=== PATIENT | female | born 1970 | race American Indian/Alaskan Native ===

== ENCOUNTER → 2016-11-09 | Outpatient (CLI) | payer OTHER ==
[~2016-11-09] MED LIST: ALBUTEROL17 GM INH; AMITRIPTYLINE H25 MG; ANTIVERT PO; BUSPAR15 M3; CLOPIDOGREL75 MG PO; DEXALANT; DEXILANT60 MG PO; DIAZEPAM; DICLOFENAC; DIPHENHYDRAMINE IV; DYRENIUM50 MG; K-DUR20 ME1; KLONOPIN; LAMICTAL100 MG PO; LIDODERM30 EA; LYRICA; MAGIC MOUTHWASH; NASONEX17 GM; PERCOCET; PERCOCET10 PO; PHENERGAN25 MG IV; POTASSIUM IV; PROTONIX IVP; ROPINIROLE HCL4 MG PO; SINGULAIR4 MG; SYMBYAX; SYNTHROID; TORADOL10 MG; TRANSDERM-1 PATCH .7 TOP; VITAMIN B122500 MC1; VITAMIN D50000 UNIT PO; XYZAL5 MG PO; ZOCOR; ZOFRAN IV; [UNRECOGNIZED DRUG - OTHER]; [UNRECOGNIZED DRUG - OTHER]; [UNRECOGNIZED DRUG - OTHER] IV
--- NOTE | ~2016-11-09 | EKG ---
PATIENT: HOLLI BURROUGHS UNIT #: [id number] Ventricular Rate: 87 BPM Atrial Rate: 87 BPM P-R Interval: 150 ms QRS Duration: 86 ms Q-T Interval: 364 ms QTC Calculation(Bezet): 438 ms P [place]: 36 degrees Calculated R [place]: 17 degrees Calculated T [place]: 35 degrees Diagnosis Line: Normal sinus rhythm Diagnosis Line: Normal ECG Diagnosis Line: No previous ECGs available Diagnosis Line: Confirmed by RADHAMES RUBIN MD ([id number]) on 11/09/2016 Diagnosis Line: 5:47:28 PM INTERPRETING MD: SCOTTIE VEGA
[2016-11-09 14:25] LABS: HEMATOCRIT 35.1 % (35.0-45.0); HEMOGLOBIN 11.2 gm/dL (12.0-16.0); MEAN CELL VOLUME 78.8 FL (83-96); MEAN CORPUSCULAR HEMOGLOBIN 25.1 PG (28-34); MEAN CORPUSCULAR HGB CONC 31.9 g/dL (30-36); MEAN PLATELET VOLUME 7.1 FL (6.5-11.5); RED BLOOD COUNT 4.45 X10e (3.90-5.30); RED CELL DISTRIBUTION WIDTH 16.1 % (11.0-15.5); WHITE BLOOD COUNT 7.6 X10e3 (4.0-10.5)
[2016-11-09 14:57] LABS: ALBUMIN SERUM 3.6 g/dL (3.5-5.0); ALKALINE PHOSPHATASE 91 U/L (32-92); ALT (SGPT) 28 U/L (10-40); AST (SGOT) 26 U/L (10-42); BILIRUBIN,TOTAL 0.2 mg/dL (0.2-2.0); BLOOD UREA NITROGEN 6 mg/dL (9-23); CALCIUM SERUM 8.8 mg/dL (8.4-10.2); CARBON DIOXIDE 25 mmol/L (22-31); CHLORIDE 105 mmol/L (100-111); CREATININE SERUM 0.8 mg/dL (0.6-1.4); GLOM FILT RATE Estimated ABOVE60 mL/min (>60); GLUCOSE FASTING 90 mg/dL (70-110); POTASSIUM 4.1 mmol/L (3.5-5.1); PROTEIN TOTAL SERUM 7.1 g/dL (6.0-8.3); SODIUM 138 mmol/L (135-145)
== END | disposition home or self-care (01) ==
LOC: CAMB 12:11
PROVIDERS: Specialist
DX: Z01.818 Encounter for other preprocedural examination (principal)
CPT/HCPCS: 36415; 80053; 85027; 93005

== ENCOUNTER → 2016-11-16 | Day surgery (SDC) | payer OTHER ==
--- NOTE | ~2016-11-16 | OR ---
Unit #: [id number] #: [id number] Patient: HOLLI BURROUGHS [id number] [facility]. [place], [place] [address] [id number] O MR#: [id number] NAME: HOLLI BURROUGHS ROOM: Date of Procedure: 11/16/2016 Admission Date: 11/16/2016 Surgeon: Connor Tang M.D. : 1970 Attending Physician: Connor Tang M.D. Primary Care Physician: Sherice Angela M.D. OPERATIVE REPORT PREOPERATIVE DIAGNOSIS Enlarging lumbar lipoma causing pain radiating into the buttock and thigh. POSTOPERATIVE DIAGNOSIS Enlarging lumbar lipoma causing pain radiating into the buttock and thigh. PROCEDURE PERFORMED Excisional biopsy of 4 cm lipoma. ANESTHESIA General endotracheal anesthesia. ESTIMATED BLOOD LOSS Less than 10 mL. INDICATIONS FOR PROCEDURE Ms. Swann is a 46-year-old female, who is morbidly obese and has multiple medical issues. She was sent to the office by her primary care physician because of the palpable lipoma in a lumbar areas that the patient states the pain radiating into the buttock and posterior thigh. The patient on examination screams and pain whenever this is palpated. DESCRIPTION OF PROCEDURE The patient was admitted to [facility], positively identified, and transported to the operating room, and after induction of general endotracheal anesthesia, she was placed in the lateral decubitus position with the left side up. Appropriate padding and a beanbag were used to secure the patient. After being prepped and draped in usual sterile fashion, a transverse incision over the palpable mass was made. We dissected down and there was a well encapsulated lipomatous mass. It was removed in its entirety. I irrigated and obtained hemostasis, closed the space with 2-0 Vicryl interrupted suture and then reapproximated the skin with 2-0 nylon vertical mattress sutures. Telfa and Tegaderm placed as a dressing. Sponges and needle counts were correct x3. During the case, 30 mL of 0.5% Marcaine were infiltrated into the fatty tissue. After the dry sterile dressing was placed, the patient was transported to recovery in stable condition. Findings and postoperative instructions were discussed with her family. Dictated by... Connor Tang M.D. Unit #: [id number] #: [id number] Patient: HOLLI BURROUGHS SANAZ/saleem TD: 11/16/2016 08:27 JOB #: [id number] OPERATIVE REPORT X Connor Tang MD PROCEDURE OPERATIVE NOTE
== END | disposition home or self-care (01) ==
LOC: CSUR 05:33
DX: E65 Localized adiposity (principal); J45.909 Unspecified asthma, uncomplicated; E03.9 Hypothyroidism, unspecified; I65.23 Occlusion and stenosis of bilateral carotid arteries; M51.36 Other intervertebral disc degeneration, lumbar region; K21.9 Gastro-esophageal reflux disease without esophagitis; K76.0 Fatty (change of) liver, not elsewhere classified; M79.7 Fibromyalgia; E78.5 Hyperlipidemia, unspecified; E87.6 Hypokalemia; I34.1 Nonrheumatic mitral (valve) prolapse; E53.8 Deficiency of other specified B group vitamins; E55.9 Vitamin D deficiency, unspecified; E66.01 Morbid (severe) obesity due to excess calories; Z68.42 Body mass index [BMI] 45.0-49.9, adult; Z87.19 Personal history of other diseases of the digestive system; Z86.2 Personal history of diseases of the blood and blood-forming organs and certain disorders involving the immune mechanism; Z88.5 Allergy status to narcotic agent; Z88.1 Allergy status to other antibiotic agents; Z88.8 Allergy status to other drugs, medicaments and biological substances; Z95.0 Presence of cardiac pacemaker; Z98.1 Arthrodesis status; Z96.653 Presence of artificial knee joint, bilateral; Z79.891 Long term (current) use of opiate analgesic; Z79.899 Other long term (current) drug therapy; Z79.52 Long term (current) use of systemic steroids; Z87.891 Personal history of nicotine dependence; Z83.3 Family history of diabetes mellitus; Z82.49 Family history of ischemic heart disease and other diseases of the circulatory system
CPT/HCPCS: 84703; 88304; J0330; J0690; J1100; J1642; J2250; J2405; J2765; J3010